=== PATIENT | female | born 1955 | race Caucasian/White ===

== ENCOUNTER 2022-12-19 07:50 | Outpatient (CLI) | payer OTHER, MEDICAID | END 2022-12-19 07:51 | disposition home or self-care (01) | LOC: CSHMRI 07:50 | PROVIDERS: ATTEND Family Medicine | DX: M25.512 Pain in left shoulder (principal); M12.512 Traumatic arthropathy, left shoulder; M15.0 Primary generalized (osteo)arthritis; M75.112 Incomplete rotator cuff tear or rupture of left shoulder, not specified as traumatic; M75.82 Other shoulder lesions, left shoulder; M25.412 Effusion, left shoulder; M65.812 Other synovitis and tenosynovitis, left shoulder ==